=== PATIENT | female | born 1995 | race African-American/Black ===

== ENCOUNTER 2018-03-01 08:21 | Emergency (ER) | payer MEDICAID ==
[~2018-03-01] VITALS: Ht 162.6 cm; Wt 59.0 kg
[2018-03-01] MEDS ORDERED: NKM (08:35)
[2018-03-01 08:37] VITALS: BP 116/70
[2018-03-01] MEDS ORDERED: Ketorolac 60mg Inj IM ONE (08:45)
[2018-03-01] MEDS ORDERED: Tylenol #3 tab (300mg/30mg) ORAL ONE (08:45)
[2018-03-01] MEDS ORDERED: ROBAXIN-750750 MG PO (09:03)
[2018-03-01] MEDS ORDERED: IBUPROFEN600 MG ORAL (09:03)
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
[2018-03-01 09:15] VITALS: BP 121/74
[2018-03-01 09:16] VITALS: BP 116/70
== END 2018-03-01 09:16 | disposition home or self-care (01) ==
LOC: EMR 08:40
DX: S16.1XXA Strain of muscle, fascia and tendon at neck level, initial encounter (principal); X50.9XXA Other and unspecified overexertion or strenuous movements or postures, initial encounter; Y92.9 Unspecified place or not applicable
CPT/HCPCS: 96372; 99283